=== PATIENT | female | born 1960 | race Caucasian/White ===

== ENCOUNTER 2017-12-11 16:34 | Emergency (ER) | payer MEDICAID ==
[~2017-12-11 16:34] MED LIST: ALPR1; FLUTI220I INH; PANT20 PO; PARO40TA PO; XANA1TAB6 PO; ZOFR4TAB3 SL
[2017-12-11 17:13] VITALS: BP 183/90; PULSE 104; RESP 18; TEMP 98.4; O2SAT 93
[2017-12-11] MEDS ORDERED: ONDANSETRON HCL 4 MG/2 ML VIAL IV PUSH ONE (17:45)
[2017-12-11] MEDS ORDERED: CLINDAMYCIN INJ 600 MG in SODIUM CHLORIDE 0.9% INJ 100 ML IV ONE (17:45)
[2017-12-11] MEDS ORDERED: LORazepam 2 MG TAB PO ONE (17:45)
--- NOTE | 2017-12-11 17:49 | PD ---
HPI Chief Complaint: Anxiety Time Seen by Provider: 17:20 Travel History International Travel<30 days: No Contact w/Intl Traveler<30days: No History of Present Illness HPI 57yo F with PMH of anxiety presents to the ED with 2 complaints. Pt was with her finance and he had a cardiac arrest. This triggered her anxiety and she is currently feeling nauseous and shaking. I initially said I will give her 1mg of ativan but she said she has high tolerance with her history of anxiety and requesting 2mg. Pt also is here because of dog bite. Pt was bitten in her left hand by her dog 3 days ago and has not seen anyone regarding that. She was seen by her PMD 3 weeks ago when she was bitten by her dog in her right hand and had finish bactrim. She said her hand is still red now and she had fever yesterday. Denies any chest pain, sob, vomiting, abdominal pain, focal weakness or numbness. PFSH Past Medical History Asthma: Yes Blood Disorders: No Bipolar Disorder: Yes Anxiety: Yes Depression: Yes Heart Rhythm Problems: No Cancer: No Cardiovascular Problems: No High Cholesterol: Yes Chemotherapy: No Chest Pain: No Congestive Heart Failure: No COPD: Yes Cerebrovascular Accident: No Diabetes: No Diminished Hearing: No Endocrine: No Gastrointestinal Disorders: No Glaucoma: No Genitourinary: No Hepatitis: No Hiatal Hernia: No Hypertension: No Immune Disorder: No Implanted Vascular Access Dvce: No Musculoskeletal: Yes (BOTH WRISTS PRIOR SURGERY, Condochondritis ) Neurologic: Yes ("I HAVE BI-POLAR OR PTSD OR SCHIZOPHRENIA") Psychiatric: Yes (POSSIBLE BI-POLAR OR PSTD OR SCHIZOPHRENIA PER PATIENT.) Reproductive: No Respiratory: Yes (COPD) Migraines: Yes Radiation Therapy: No Schizophrenia: Yes (PER PT) Seizures: Yes ( HX OF. NONE IN YEARS) Sleep Apnea: No Thyroid Disease: No Tetanus Vaccination: > 5 Years Menopausal: Yes : 3 Para: 3 Ovarian Cysts: Yes Past Surgical History Abdominal Surgery: Yes (gallbladder) Body Medical Devices: Pins from ortho surgeries Cardiac Surgery: No Section: Yes (X 3) Cholecystectomy: Yes Ear Surgery: No Endocrine Surgery: No Eye Surgery: No Genitourinary Surgery: No Gynecologic Surgery: Yes ( X 3) Joint Replacement: No Neurologic Surgery: No Oral Surgery: No Pacemaker: No Thoracic Surgery: No Other Surgery: Yes Social History Alcohol Use: No Tobacco Use: Yes (1 PPD) Substance Use: No Allergies-Medications (Allergen,Severity, Reaction): Coded Allergies: codeine (Unverified Allergy, Mild, RASH AND VOMITING, 05/29/17) penicillin G (Unverified Allergy, Mild, RASH AND VOMITING, 05/29/17) *MDRO Multi-Drug Resistant Organism (Verified Allergy, Unknown, 06/09/15) Positive [facility] Reported Meds & Prescriptions Reported Meds & Active Scripts Active Clindamycin (Clindamycin HCl) 300 Mg Cap 300 Mg PO Q6H 7 Days Doxycycline Hyclate 100 Mg Cap 100 Mg PO BID 7 Days Reported Klonopin (Clonazepam) 1 Mg Tab 1 Mg PO BID Prozac (Fluoxetine HCl) 40 Mg Cap 40 Mg PO DAILY Review of Systems Except as stated in HPI: all other systems reviewed are Neg Physical Exam Narrative GENERAL: 57yo F anxious appearing. SKIN: Focused skin assessment warm/dry. HEAD: Atraumatic. Normocephalic. EYES: Pupils equal and round. No scleral icterus. No injection or drainage. ENT: No nasal bleeding or discharge. Mucous membranes pink and moist. NECK: Trachea midline. No JVD. CARDIOVASCULAR: Regular rate and rhythm. No murmur appreciated. RESPIRATORY: No accessory muscle use. Clear to auscultation. Breath sounds equal bilaterally. GASTROINTESTINAL: Abdomen soft, non-tender, nondistended. MUSCULOSKELETAL: Left hand: +0.5cm bite back between left thumb and second digit. +Erythema dorsum of left hand. No active bleeding. Mild erythema. Right hand: +Round flesh with small amount of streaky erythema between 1st and second digit. FROM in all digits. Sensation intact. Distal pulses intact. NEUROLOGICAL: Awake and alert. No obvious cranial nerve deficits. Motor grossly within normal limits. Normal speech. PSYCHIATRIC: Appropriate mood and affect; insight and judgment normal. Data Data Last Documented VS Vital Signs Date Time Temp Pulse Resp B/P (MAP) Pulse Ox O2 Delivery O2 Flow Rate FiO2 12/11/17 18:39 86 18 139/71 (93) 94 Room Air 12/11/17 17:13 98.4 Orders Orders Lorazepam (Ativan) (12/11/17 17:45) Basic Metabolic Panel (Bmp) (12/11/17 17:41) Complete Blood Count With Diff (12/11/17 17:41) Iv Access Insert/Monitor (12/11/17 17:41) Clindamycin Inj (Cleocin Inj) (12/11/17 17:45) Ondansetron Inj (Zofran Inj) (12/11/17 17:45) Tetanus/Diphtheria Tox Adult (Tetanus/Di (12/11/17 18:00) Doxycycline (Vibramycin) (12/11/17 18:45) Labs Laboratory Tests Test 12/11/17 18:00 White Blood Count 8.6 TH/MM3 Red Blood Count 4.37 MIL/MM3 Hemoglobin 13.0 GM/DL Hematocrit 36.7 % Mean Corpuscular Volume 84.0 FL Mean Corpuscular Hemoglobin 29.6 PG Mean Corpuscular Hemoglobin Concent 35.3 % Red Cell Distribution Width 13.2 % Platelet Count 242 TH/MM3 Mean Platelet Volume 6.8 FL Neutrophils (%) (Auto) 72.8 % Lymphocytes (%) (Auto) 22.0 % Monocytes (%) (Auto) 4.0 % Eosinophils (%) (Auto) 0.1 % Basophils (%) (Auto) 1.1 % Neutrophils # (Auto) 6.3 TH/MM3 Lymphocytes # (Auto) 1.9 TH/MM3 Monocytes # (Auto) 0.3 TH/MM3 Eosinophils # (Auto) 0.0 TH/MM3 Basophils # (Auto) 0.1 TH/MM3 CBC Comment DIFF FINAL Differential Comment Blood Urea Nitrogen 16 MG/DL Creatinine 1.00 MG/DL Random Glucose 117 MG/DL Calcium Level 9.4 MG/DL Sodium Level 134 MEQ/L Potassium Level 4.5 MEQ/L Chloride Level 100 MEQ/L Carbon Dioxide Level 29.0 MEQ/L Anion Gap 5 MEQ/L Estimat Glomerular Filtration Rate 57 ML/MIN [facility] Medical Decision Making Medical Screen Exam Complete: Yes Emergency Medical Condition: Yes Differential Diagnosis Normal grief vs. panic attack vs. cellulitis Narrative Course 57yo F with panic attack after witnessing her fiance have a cardiac arrest. Pt has baseline anxiety and this exacerbated her underlying anxiety which is reasonable. Pt given ativan 2mg PO and is now feeling much better. Pt also has left hand cellulitis from a dog bite 3 days ago. It is her dog and human society has it and can observe for 10 days so rabies is not needed at this time. Pt did not seek any medical attention for this bite and has not try outpatient therapy yet. Right hand was bitten by her dog 3 weeks ago and she had finish bactrim and it has improved but said there is still redness. Said she never got tetanus by her PMD. Pt is nontoxic appearing and allergic to penicillin so will not give augmentin. Labs reviewed, no leukocytosis. H/H normal. BMP unremarkable. Vital signs improved after ativan. Pt given clindamycin IV and doxycycline PO. Pt is concern about the cosmetic appearance of the wound in right hand. Will try outpatient treatment first and pt instructed to follow up with hand/plastic. Return precautions given. Diagnosis Primary Impression: Panic attack Additional Impression: Cellulitis Qualified Codes: L03.114 - Cellulitis of left upper limb Referrals: Ananth Keys MD as needed Patient Instructions: General Instructions Departure Forms: Tests/Procedures Additional Instructions: Please follow up with your primary care physician or hand/plastic if concern about the cosmetic appearance of right hand. Return to the ED if symptoms worsen. Med/Other Pt SpecificInfo: Prescription(s) given Scripts Clindamycin (Clindamycin) 300 Mg Cap 300 MG PO Q6H for Infection for 7 Days, #28 CAP 0 Refills Prov: Lamar Gardiner DO 12/11/17 Doxycycline Hyclate (Doxycycline Hyclate) 100 Mg Cap 100 MG PO BID for Infection for 7 Days, #14 CAP 0 Refills Prov: Lamar Gardiner DO 12/11/17 Disposition: 01 DISCHARGE HOME Condition: Stable Lamar Gardiner DO Dec 11, 2017 17:49
[2017-12-11] MEDS ORDERED: TETANUS/DIPHTHERIA TOXOID ADULT 0.5 ML VIAL IM ONE (18:00)
[2017-12-11] MEDS ORDERED: PROZ40CA PO (18:10)
[2017-12-11] MEDS ORDERED: CLON1 PO (18:10)
[2017-12-11 18:18] LABS: AUTOMATED NEUTROPHIL # 6.3 TH/MM3 (1.8-7.7); BASOPHIL # 0.1 TH/MM3 (0-0.2); BASOPHIL % 1.1 % (0.0-2.0); EOSINOPHIL % 0.1 % (0.0-4.0); HEMATOCRIT 36.7 % (35.0-46.0); LYMPHOCYTE # 1.9 TH/MM3 (1.0-4.8); MEAN CORPUSCULAR HEMOGLOBIN 29.6 PG (27.0-34.0); MEAN CORPUSCULAR HGB CONC 35.3 % (32.0-36.0); MEAN PLATELET VOLUME 6.8 FL (7.0-11.0); MONOCYTE # 0.3 TH/MM3 (0-0.9); NEUT % 72.8 % (16.0-70.0); PLATELET COUNT 242 TH/MM3 (150-450); RED BLOOD COUNT 4.37 MIL/MM3 (4.00-5.30); RED CELL DISTRIBUTION WIDTH 13.2 % (11.6-17.2); WHITE BLOOD COUNT 8.6 TH/MM3 (4.0-11.0)
[2017-12-11 18:39] VITALS: BP 139/71; PULSE 86; RESP 18; O2SAT 94
[2017-12-11 18:40] LABS: CALCIUM 9.4 MG/DL (8.5-10.1)
[2017-12-11] MEDS ORDERED: DOXYCYCLINE HYCLATE 100 MG CAP PO ONE (18:45)
[2017-12-11] MEDS ORDERED: CLIN300C5 PO (18:59)
[2017-12-11] MEDS ORDERED: DOXY100C PO (18:59)
== END 2017-12-11 19:20 | disposition home or self-care (01) ==
LOC: NEPD 16:34
DX: F41.0 Panic disorder [episodic paroxysmal anxiety] (principal); L03.114 Cellulitis of left upper limb; F41.9 Anxiety disorder, unspecified; J45.909 Unspecified asthma, uncomplicated; F31.9 Bipolar disorder, unspecified; E78.00 Pure hypercholesterolemia, unspecified; J44.9 Chronic obstructive pulmonary disease, unspecified; F17.200 Nicotine dependence, unspecified, uncomplicated; Z23 Encounter for immunization
CPT/HCPCS: 80048; 85025; 90471; 90714; 96365; 96375; 99284; J2405